=== PATIENT | male | born 1975 | race Caucasian/White ===

== ENCOUNTER 2016-04-14 02:13 | Observation (INO) | payer OTHER ==
--- NOTE | ~2016-04-14 | HP ---
Unit #: [id number] #: [id number] Patient: IVIS ANDREWS [id number] [facility]. [place], [place] [address] [id number] I MR#: [id number] NAME: IVIS ANDREWS ROOM: 2 Age: 40 Sex: M Admission Date: 04/14/2016 : 1975 Attending Physician: Josiah Bond M.D. Primary Care Physician: Chelsea Hand M.D. HISTORY AND PHYSICAL CHIEF COMPLAINT Chest pain. HISTORY OF PRESENT ILLNESS The patient is a 40-year-old male who presented to [facility] with the complaint of neck pain. He states he has had several days of pain in his neck which ultimately prompted him to come to the emergency department. While in the ED, he experienced an episode of chest pain. The patient was in a wheelchair given a history of Guillain-Adjuntas, and he slid out of the wheelchair while he had this chest pain. It is unclear whether the patient lost consciousness or not. The patient states that his chest pain actually started the day prior. It is associated with nausea, but no palpitations or radiation. It is associated with his left chest. He says it is often worse with deep breathing. He does have some occasional shortness of breath, but this is with exertion and is not necessarily associated with his chest pain. PAST MEDICAL HISTORY 1. Chronic atrial fibrillation. 2. Obstructive sleep apnea, on CPAP. 3. Gastroesophageal reflux disease. 4. Lumbar disc disease. 5. Hyperlipidemia. 6. Chronic diastolic heart failure. 7. Mood disorder. 8. Depression and anxiety. 9. Posttraumatic stress disorder. 10. History of CVA with successful treatment with TPA. 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 PAST SURGICAL HISTORY 1. Inguinal hernia repair. 2. Umbilical hernia repair. 3. Vasectomy. 4. Ureteral dilatation. SOCIAL HISTORY The patient states he has had no tobacco since the first of the year. He denies alcohol and illicit drug use. HOME MEDICATIONS 1. Eliquis 5 mg p.o. b.i.d. 2. Neurontin 400 mg p.o. q.8 hours. Unit #: [id number] #: [id number] Patient: IVIS ANDREWS 3. Losartan 25 mg p.o. daily. 4. Glucophage 500 mg p.o. b.i.d. 5. Zantac 150 mg p.o. b.i.d. 6. Paxil 30 mg daily. 7. Zyrtec 10 mg daily. 8. Cymbalta 20 mg p.o. b.i.d. 9. Cardizem 60 mg p.o. b.i.d. REVIEW OF SYSTEMS A 10-point review of systems was obtained and negative except as per History of Present Illness with the addition of his anxiety and depression symptoms and the weakness he has associated with his Guillain-Adjuntas which is unchanged. Again, he complains of some neck pain that is worse when he moves his neck, but no associated radiculopathy. PHYSICAL EXAMINATION VITAL SIGNS: Temperature 98.8, pulse 115, and blood pressure 99/58. GENERAL: A 40-year-old male in no acute distress who appears stated age. HEENT: Pupils equally round. Extraocular movements intact. Mucous membranes are dry. NECK: Supple. No JVD, no lymphadenopathy. CARDIAC: Regular rate and rhythm. No murmurs, gallops, or rubs. LUNGS: Clear to auscultation bilaterally. ABDOMEN: Nontender and nondistended. Positive bowel sounds. EXTREMITIES: No clubbing, cyanosis, or edema. They are warm and dry. PSYCHIATRIC: Alert and oriented x3. Affect is appropriate. NEUROLOGIC: Cranial nerves II-XII intact grossly. Patient moves all extremities equally and with purpose. SKIN: No rashes, bruises, or ulcers. MUSCULOSKELETAL: No muscle or joint pain. No muscle or joint swelling. DIAGNOSTIC STUDIES LABORATORY: Sodium 134 and CK 34, otherwise, BMP is normal. Coagulation studies reveal a PT of 12.1 which is slightly elevated given relatively new testing setup. The highest normal value is 11.5. D-dimer is normal. White count 12.3 and hemoglobin 17. IMAGING: X-ray of the patient's cervical spine is without acute findings. It shows simply some degenerative spurring at C3-4. ASSESSMENT AND PLAN 1. Chest pain. Patient has been admitted for stress testing. The exact cause is not clear at this time, nor is it clear whether the patient passed out or simply fell out of his wheelchair. I have admitted the patient to telemetry floor for monitoring for cardiac arrhythmia. I have ordered a stress test, and depending on the results, the patient may ultimately need a Cardiology consult. 2. Guillain-Adjuntas. I have discussed the diagnosis with the patient. Apparently, he is able to ambulate and often uses a walker at home. He tells me at this time he is not interested in physical therapy and/or rehab. 3. Hypertension. Continue home medications. 4. History of stroke. The patient is currently Eliquis which we will continue. 5. Chronic diastolic heart failure. The patient appears to be compensated and will continue his home medications. 6. Prophylaxis. The patient has been admitted for observation, and no deep venous thrombosis prophylaxis is indicated at this time. Unit #: [id number] #: [id number] Patient: IVIS ANDREWS 1. Dictated by Hunter Fitch/rosales TD: 04/14/2016 16:36 JOB #: [id number] HISTORY AND PHYSICAL X Josiah Bond MD X HISTORY AND PHYSICAL
--- NOTE | ~2016-04-14 | BMI ---
[facility] Nutrition Therapy DATE: 04/14/16 Patient: IVIS ANDREWS Physician: ESA Address: [address] [place] [address] Room/Bed: [address] [place] [address], Zip: [place] [address] Admit Date: 04/14/16 Date of : [birth year] Height: 5 11 Weight: 307 139.5 HIGH BMI NOTE: DX: NECK PAIN ANTHROPOMETRICS: HT: 5'11"WT: 307 LBS BMI: 42.8 DIET: NPO INTERVENTION: 1. NPO RECOMMENDATIONS: 1. ADVANCE DIET TOLERATED TO HH/CC DIET TO PROMOTE GRADUAL WEIGHT LOSS TOWARDS +/- 10% IBW OR HEALTHY BMI (19.0-25.0) Respectfully, Miriam Taylor RD, LD [employer] cc: client file
--- NOTE | ~2016-04-14 | TH ---
Unit #: [id number] #: [id number] Patient: IVIS ANDREWS [id number] [place], [place] [address] [id number] I MR#: [id number] NAME: IVIS ANDREWS : 1975 SEX: M STUDY DATE/TIME: UNIT: C5B ROOM: 552 STUDY DESCRIPTION: Nuclear Study Attending Physician: Josiah Bond M.D. Primary Care Physician: Chelsea Hand M.D. CARDIOLOGY REPORT EXAM Lexiscan Cardiolite Stress Test - Nuclear Portion PROCEDURE Using technetium 99m labeled Cardiolite, rest and stress SPECT images were obtained. Multiple SPECT images were obtained in various views including horizontal and vertical long axis and short axis views of the left ventricle. Images were obtained by gated SPECT method. The patient was administered 8.50 mCi of Cardiolite at rest. The patient was administered 33.7 mCi of Cardiolite after Lexiscan infusion was completed. On the stress images, there is normal perfusion noted. The rest images show normal perfusion. Comparing rest and stress images, there is no stress-induced ischemia noted. The left ventricular ejection fraction is calculated to be 55%. There is no focal wall motion abnormality seen. CONCLUSION 1. No stress-induced ischemia noted. 2. The left ventricular ejection fraction is calculated to be 55%. 3. There is no focal wall motion abnormality seen. 4. Normal Lexiscan Cardiolite stress test. Dictated by... Hunter Gurrola TD: 04/15/2016 07:01 JOB #: [id number] CARDIOLOGY REPORT X Aicha Nicolas MD <ELECTRONICALLY SIGNED> 09/12/16 1428 CARDIOLOGY REPORT
--- NOTE | ~2016-04-14 | EKG ---
PATIENT: IVIS ANDREWS UNIT #: [id number] Ventricular Rate: 78 BPM Atrial Rate: 78 BPM P-R Interval: 182 ms QRS Duration: 84 ms Q-T Interval: 388 ms QTC Calculation(Bezet): 442 ms P [place]: 48 degrees Calculated R [place]: 14 degrees Calculated T [place]: 6 degrees Diagnosis Line: Normal sinus rhythm Diagnosis Line: Normal ECG Diagnosis Line: When compared with ECG of 17-AUG-2014 01:21, Diagnosis Line: No significant change was found Diagnosis Line: Confirmed by PATEL MCGINNIS MD ([id number]) on 04/14/2016 Diagnosis Line: 7:15:41 AM INTERPRETING MD: RAS DUNN
--- NOTE | ~2016-04-14 | CR72 ---
[facility] A Service of [facility] & [facility] RADIOLOGY TEXT RESULTS PATIENT: IVIS ANDREWS LOCATION: [place] [address] : [birth year] UNIT #: [id number] AGE: [address]: Josiah Bond MD SEX: M ORDER DR: [id number] [facility] [address] [place], [place] [address] [id number] I MR#: [id number] Acc #: [id number] NAME: IVIS ANDREWS : 1975 SEX: M STUDY DATE/TIME: 04/14/2016 2:15 UNIT: [facility] ROOM: [facility] STUDY DESCRIPTION: CR Chest Single View Portable Attending Physician: Josiah Bond M.D. Ordering Physician: Cameron Gil M.D. Primary Care Physician: Chelsea Hand M.D. MEDICAL IMAGING REPORT This report is preliminary unless electronic signature is present EXAM Portable chest, 04/14 INDICATION Shortness of air with syncopal episode tonight. History of hypertension. FINDINGS AP portable chest is compared with 08/17/2014. Lung volumes are low but the lungs are clear. There is stable cardiomegaly. There may be a trace amount of left pleural fluid. No pneumothorax. Patient has a loop recorder on the left side. IMPRESSION Stable cardiomegaly. Possible trace left effusion. Lungs are clear. Dictated by... Jean Paul Rainey Jr., M.D. THIS IS AN ELECTRONICALLY VERIFIED REPORT Jean Paul Rainey Jr., M.D. at 04/15/2016 3:56 PM KALYANI/christian TD: 04/14/2016 11:10 JOB #: [id number] MEDICAL IMAGING REPORT COPY
--- NOTE | ~2016-04-14 | CR58 ---
[facility] A Service of [facility] & [facility] RADIOLOGY TEXT RESULTS PATIENT: IVIS ANDREWS LOCATION: [place] [address] : [birth year] UNIT #: [id number] AGE: [address]: Josiah Bond MD SEX: M ORDER DR: [id number] [facility] [address] [place], [place] [address] [id number] I MR#: [id number] Acc #: [id number] NAME: IVIS ANDREWS : 1975 SEX: M STUDY DATE/TIME: 04/14/2016 2:17 UNIT: [facility] ROOM: [facility] STUDY DESCRIPTION: CR Cervical Spine 2 or 3 Views Attending Physician: Josiah Bond M.D. Ordering Physician: Daryl Gil, [id number] Primary Care Physician: Chelsea Hand M.D. MEDICAL IMAGING REPORT This report is preliminary unless electronic signature is present EXAM Cervical spine 04/14 INDICATIONS Neck pain tonight. Syncopal episode. FINDINGS 5 views of the cervical spine are compared with cervical spine CT scan from 06/27/2013. No fracture or subluxation is seen. Anterior bridging osteophyte noted at C4-5. Prevertebral soft tissues are within normal limits. IMPRESSION Degenerative spurring at C4-5. Otherwise negative cervical spine series. Dictated by... Jean Paul Rainey Jr., M.D. THIS IS AN ELECTRONICALLY VERIFIED REPORT Jean Paul Rainey Jr., M.D. at 04/14/2016 2:26 PM KALYANI/jennifer TD: 04/14/2016 11:05 JOB #: [id number] MEDICAL IMAGING REPORT COPY
[~2016-04-14 02:13] MED LIST: ASPIRIN81 MG PO; ATIVAN PO; AZITHROMYCIN250 MG PO; COZAAR PO; LIPITOR PO; PAXIL PO; PLAVIX PO; RANITIDINE HCL150 M1 PO; ZYRTEC10 M2 PO; ZYRTEC5 M4 PO
[2016-04-14] MEDS ORDERED: CARDIZEM60 M1 PO (02:14)
[2016-04-14] MEDS ORDERED: ZANTAC150 M1 PO (02:14)
[2016-04-14] MEDS ORDERED: ZYRTEC10 M1 PO (02:14)
[2016-04-14] MEDS ORDERED: CYMBALTA20 M1 PO (02:14)
[2016-04-14] MEDS ORDERED: PAXIL30 MG PO (02:14)
[2016-04-14] MEDS ORDERED: GLUCOPHAGE500 M1 PO (02:15)
[2016-04-14] MEDS ORDERED: COZAAR25 MG PO (02:15)
[2016-04-14] MEDS ORDERED: ELIQUIS5 MG PO (02:15)
[2016-04-14] MEDS ORDERED: NEURONTIN PO (02:15)
[2016-04-14 02:17] LABS: BASOPHIL# 0.1 X10e3 (0-0.3); BASOPHIL% 0.7 % (0-2.5); DIFF IND NO; EOSINOPHIL# 0.2 X10e3 (0-0.7); EOSINOPHIL% 1.7 % (0.0-7.0); HEMATOCRIT 50.3 % (38.0-50.0); LYMPHOCYTE# 4.8 X10e3 (1.0-3.5); LYMPHOCYTE% 38.9 % (17.0-45.0); MEAN CELL VOLUME 88.8 FL (83-96); MEAN CORPUSCULAR HGB CONC 33.8 g/dL (30-36); MEAN PLATELET VOLUME 8.1 FL (6.5-11.5); MONOCYTE% 8.1 % (3.0-12.0); NEUTROPHIL# 6.2 X10e3 (1.5-7.1); NEUTROPHIL% 50.6 % (40-75); PLATELET COUNT 197 X10e3 (140-420); RED BLOOD COUNT 5.66 X10e (3.90-5.60); RED CELL DISTRIBUTION WIDTH 14.4 % (11.0-15.5); WHITE BLOOD COUNT 12.3 X10e3 (4.0-10.5)
[2016-04-14 02:40] LABS: INR 1.1; PARTIAL THROMBOPLASTIN TIME 24.4 SECONDS (23.5-31.3); PROTHROMBIN TIME (PATIENT) 12.1 SECONDS (9.6-11.5)
[2016-04-14 02:59] LABS: BLOOD UREA NITROGEN 8 mg/dL (9-23); BUN/CREATININE RATIO 7.27; CARBON DIOXIDE 23 mmol/L (22-31); CHLORIDE 105 mmol/L (100-111); CREATININE SERUM 1.1 mg/dL (0.6-1.4); GLOM FILT RATE Estimated ABOVE60 mL/min (>60); GLUCOSE FASTING 101 mg/dL (70-110); POTASSIUM 3.9 mmol/L (3.5-5.1); SODIUM 134 mmol/L (135-145)
[2016-04-14 03:17] LABS: POC - CKMB <1.0 ng/mL (0.0-7.9); POC - TROPONIN <0.05 ng/mL (<=0.05)
[2016-04-14 03:21] LABS: POC - CKMB <1.0 ng/mL (0.0-7.9); POC - TROPONIN <0.05 ng/mL (<=0.05)
[2016-04-14 08:19] LABS: CK TOTAL 34 IU/L (36-174)
== END 2016-04-14 17:22 | disposition home or self-care (01) ==
LOC: CED 02:13 → CEDOF 06:20 → C5B 08:04
PROVIDERS: Emergency Medicine
DX: R07.9 Chest pain, unspecified (principal); R55 Syncope and collapse; G61.0 Guillain-Barre syndrome; I11.0 Hypertensive heart disease with heart failure; I50.32 Chronic diastolic (congestive) heart failure; M54.2 Cervicalgia; G47.33 Obstructive sleep apnea (adult) (pediatric); Z86.73 Personal history of transient ischemic attack (TIA), and cerebral infarction without residual deficits; Z79.01 Long term (current) use of anticoagulants; I51.7 Cardiomegaly; F17.200 Nicotine dependence, unspecified, uncomplicated
CPT/HCPCS: 36415; 71010; 72040; 78452; 80048; 82550; 82553; 82947; 84484; 85025; 85379; 85610; 85730; 93005; 93017; 96374; 99285; A9500; G0378; J1885; J2550; J2785